=== PATIENT | male | born 1970 | race African-American/Black ===

== ENCOUNTER 2020-11-24 18:08 | Emergency (ER) | payer OTHER ==
[~2020-11-24] VITALS: Ht 170.2 cm; Wt 81.6 kg
[2020-11-24 18:47] VITALS: BP 152/129
== END 2020-11-24 19:27 | disposition left against medical advice (07) ==
LOC: ER 18:14
DX: R07.81 Pleurodynia (principal); M25.561 Pain in right knee; Z53.21 Procedure and treatment not carried out due to patient leaving prior to being seen by health care provider; Y08.89XA Assault by other specified means, initial encounter; Y93.89 Activity, other specified; Y92.89 Other specified places as the place of occurrence of the external cause; Y99.8 Other external cause status

== ENCOUNTER 2020-11-25 02:34 | Emergency (ER) | payer SELFPAY ==
[~2020-11-25] VITALS: Ht 170.2 cm; Wt 85.3 kg
[2020-11-25 07:15] VITALS: BP 133/77
[2020-11-25] MEDS ORDERED: KETOROLAC TROMETH 60MG/2ML VIAL IM ONE (07:15)
== END 2020-11-25 08:27 | disposition home or self-care (01) ==
LOC: ER 02:38
DX: S96.911A Strain of unspecified muscle and tendon at ankle and foot level, right foot, initial encounter (principal); M17.11 Unilateral primary osteoarthritis, right knee; F12.10 Cannabis abuse, uncomplicated; R07.81 Pleurodynia; Y08.89XA Assault by other specified means, initial encounter; Y93.89 Activity, other specified; Y92.89 Other specified places as the place of occurrence of the external cause; Y99.8 Other external cause status
CPT/HCPCS: 71101; 73562; 73600; 96372; 99284; J1885